=== PATIENT | female | born 1935 | race Caucasian/White ===

== ENCOUNTER 2025-07-01 09:54 | Inpatient (IN) | payer MEDICARE, OTHER ==
[~2025-07-01] VITALS: Ht 154.9 cm; Wt 60.3 kg
[2025-07-01] VITALS (10 sets, daily range): BP systolic 90–115; BP diastolic 47–65; TEMP 98–98.3; O2SAT 94–98
[2025-07-01] MEDS ORDERED: IPRATROPIUM BROMIDE 0.5 MG/2.5 ML NEBU ONE ×2 (10:25→12:02)
[2025-07-01] MEDS ORDERED: ALBUTEROL SULFATE 2.5 MG/3 ML NEBU ONE ×2 (10:25→12:02)
[2025-07-01] MEDS ORDERED: BP med PO (10:35)
[2025-07-01 10:36] LABS: PLATELET COUNT (AUTO) 129 K/uL (179-408); RED BLOOD CELL COUNT(AUTO) 4.13 MIL/uL (3.63-4.92); RED CELL DISTRIBUTION WIDTH 14.7 % (12.3-17.7); WHITE BLOOD COUNT (AUTO) 9.1 K/uL (3.8-11.8)
[2025-07-01] MEDS: ALBUTEROL SULFATE 2.5 MG/3 ML NEBU NEB ONE (10:37)
[2025-07-01] MEDS: IPRATROPIUM BROMIDE 0.5 MG/2.5 ML NEBU NEB ONE (10:37)
[2025-07-01 10:55] LABS: ASPARTATE AMINOTRANSFERASE 25 U/L (15-37); CREATININE 1.0 mg/dL (0.6-1.3); SODIUM SERUM 131 mmol/L (136-145); TOTAL PROTEIN, SERUM 7.4 g/dL (6.4-8.2); UREA NITROGEN, BLOOD 19 mg/dL (7-18)
[2025-07-01] MEDS ORDERED: LIDOCAINE VISCUS 2% 15 ML UDC ONE (11:11)
[2025-07-01] MEDS ORDERED: ACETAMINOPHEN 325 MG TABLET ONE (11:11)
[2025-07-01] MEDS: LIDOCAINE VISCUS 2% 15 ML UDC MM ONE (11:16)
[2025-07-01] MEDS: IV NS 1000 ML 1,000 ML IV ONE (11:16)
[2025-07-01] MEDS: ACETAMINOPHEN 325 MG TABLET PO ONE (11:16)
[2025-07-01] MEDS: ENOXAPARIN SODIUM 40 MG/0.4 ML DISP.SYRIN SQ SCH (11:30)
[2025-07-01] MEDS ORDERED: MAGNESIUM HYDROXIDE 30 ML LIQUID UDC PO PRN (11:30)
[2025-07-01] MEDS ORDERED: ONDANSETRON 4 MG/2 ML VIAL IV PRN (11:30)
[2025-07-01] MEDS ORDERED: CEFTRIAXONE /D5W 50ML IVPB **ER PYXIS IV ONE (11:30)
[2025-07-01] MEDS ORDERED: MEMA5TAB16 PO (12:46)
[2025-07-01] MEDS ORDERED: TRAZ-182 PO (12:46)
[2025-07-01] MEDS ORDERED: LINA145C PO (12:46)
[2025-07-01] MEDS ORDERED: LOSA25TA27 PO (12:46)
[2025-07-01] MEDS: ALBUTEROL SULFATE 2.5 MG/3 ML NEBU NEB SCH (14:25)
[2025-07-01] MEDS: IPRATROPIUM BROMIDE 0.5 MG/2.5 ML NEBU NEB SCH (14:25)
[2025-07-01] MEDS: IV NS 1000 ML 1,000 ML IV PRN (15:41)
[2025-07-01] MEDS ORDERED: GUAIFENESIN/DEXTROMETHORPHAN 5 ML UDC PO PRN (16:30)
[2025-07-01] MEDS ORDERED: ACETAMINOPHEN/CODEINE 300-30 MG TABLET PO PRN (16:30)
[2025-07-01] MEDS: GUAIFENESIN LA 600 MG TABLET.SA PO SCH (20:35)
[2025-07-01] MEDS: TRAZODONE 50 MG TABLET PO PRN (23:30)
[2025-07-02] VITALS (14 sets, daily range): BP systolic 96–114; BP diastolic 51–65; TEMP 97.8–98.2; O2SAT 92–99
[2025-07-02] MEDS: GUAIFENESIN/CODEINE 5 ML LIQUID UDC PO PRN (02:44)
[2025-07-02] MEDS: PANTOPRAZOLE SODIUM 40 MG TABLET.DR PO SCH (06:33)
[2025-07-02 06:42] LABS: PLATELET COUNT (AUTO) 94 K/uL (179-408); RED BLOOD CELL COUNT(AUTO) 3.64 MIL/uL (3.63-4.92); RED CELL DISTRIBUTION WIDTH 15.2 % (12.3-17.7); WHITE BLOOD COUNT (AUTO) 5.7 K/uL (3.8-11.8)
[2025-07-02 06:46] LABS: CREATININE 0.9 mg/dL (0.6-1.3); SODIUM SERUM 133 mmol/L (136-145); UREA NITROGEN, BLOOD 18 mg/dL (7-18)
[2025-07-02 07:58] LABS: ABG BASE EXCESS -1.1 mmol/L (-2.0-3.0); ABG HCO3 21.0 mmol/L (21.0-28.0); ABG PCO2 26.8 mmHg (32.0-45.0); ABG PH 7.512 (7.350-7.450); ABG PO2 44.1 mmHg (83.0-108.0); ABG TOTAL HEMOGLOBIN 10.4 G/dL (12.0-16.0); AaDO2 85.5 mmHg; FIO2 21.0 %
[2025-07-02] MEDS ORDERED: Linaclotide (Linzess) 145 MCG) PO SCH (09:00)
[2025-07-02] MEDS: MEMANTINE HCL 5 MG TABLET PO SCH (10:04)
[2025-07-02] MEDS: ACETAMINOPHEN 325 MG TABLET PO PRN (10:06)
[2025-07-02] MEDS: LOSARTAN POTASSIUM 25 MG TABLET PO SCH (10:07)
[2025-07-02 10:12] LABS: LYMPHOCYTES % (MANUAL) 14 % (20-40); MONOCYTES % (MANUAL) 7 % (2-10); NEUTROPHILS % (MANUAL) 79 % (42-75)
[2025-07-02 10:13] LABS: PLATELET ESTIMATE MARKED DECREASED
[2025-07-02] MEDS: LORAZEPAM 0.5 MG TABLET PO PRN (14:52)
[2025-07-02] MEDS: NEUTRA PHOS PACKET PO ONE (16:38)
[2025-07-02] MEDS ORDERED: TRAZODONE 50 MG TABLET PO SCH (21:00)
[2025-07-02] MEDS: TRAZODONE 100 MG TABLET PO SCH (21:46)
[2025-07-03] VITALS (15 sets, daily range): BP systolic 98–130; BP diastolic 45–65; TEMP 97.6–97.8; O2SAT 90–98
[2025-07-03 06:29] LABS: PLATELET COUNT (AUTO) 102 K/uL (179-408); RED BLOOD CELL COUNT(AUTO) 3.58 MIL/uL (3.63-4.92); RED CELL DISTRIBUTION WIDTH 15.2 % (12.3-17.7); WHITE BLOOD COUNT (AUTO) 5.2 K/uL (3.8-11.8)
[2025-07-03 06:47] LABS: CREATININE 0.7 mg/dL (0.6-1.3); SODIUM SERUM 135 mmol/L (136-145); UREA NITROGEN, BLOOD 16 mg/dL (7-18)
[2025-07-03] MEDS ORDERED: IPRATROPIUM BROMIDE 0.5 MG/2.5 ML NEBU NEB PRN (09:15)
[2025-07-03] MEDS ORDERED: ALBUTEROL SULFATE 2.5 MG/3 ML NEBU NEB PRN (09:15)
[2025-07-03] MEDS: NEUTRA PHOS PACKET PO ONE (11:08)
[2025-07-03] MEDS: AZITHROMYCIN IV 500 MG in IV DEXTROSE 5% 250 ML IV SCH (19:33)
[2025-07-03] MEDS: ENOXAPARIN SODIUM 40 MG/0.4 ML DISP.SYRIN SQ SCH (21:09)
[2025-07-04] VITALS (14 sets, daily range): BP systolic 102–132; BP diastolic 59–70; TEMP 97.3–97.7; O2SAT 90–97
[2025-07-04 06:43] LABS: PLATELET COUNT (AUTO) 131 K/uL (179-408); RED BLOOD CELL COUNT(AUTO) 3.35 MIL/uL (3.63-4.92); RED CELL DISTRIBUTION WIDTH 15.1 % (12.3-17.7); WHITE BLOOD COUNT (AUTO) 5.0 K/uL (3.8-11.8)
[2025-07-04 07:12] LABS: CREATININE 0.8 mg/dL (0.6-1.3); SODIUM SERUM 140 mmol/L (136-145); UREA NITROGEN, BLOOD 17 mg/dL (7-18)
[2025-07-04] MEDS: NEUTRA PHOS PACKET PO ONE (11:58)
[2025-07-05] VITALS (7 sets, daily range): BP systolic 122–137; BP diastolic 63–71; TEMP 97.3–98.2; O2SAT 61–97
[2025-07-05 06:49] LABS: PLATELET COUNT (AUTO) 158 K/uL (179-408); RED BLOOD CELL COUNT(AUTO) 3.52 MIL/uL (3.63-4.92); RED CELL DISTRIBUTION WIDTH 15.2 % (12.3-17.7); WHITE BLOOD COUNT (AUTO) 5.5 K/uL (3.8-11.8)
[2025-07-05 06:50] LABS: CREATININE 0.9 mg/dL (0.6-1.3); SODIUM SERUM 141 mmol/L (136-145); UREA NITROGEN, BLOOD 19 mg/dL (7-18)
[2025-07-05] MEDS: BENZOCAINE/MENTH/CETYLPYRD LOZENGE MM PRN (09:28)
[2025-07-05] MEDS: AZITHROMYCIN 250 MG TABLET PO ONE (18:44)
[2025-07-05] MEDS: NEUTRA PHOS PACKET PO ONE (18:44)
[2025-07-05] MEDS: BISACODYL 5 MG TABLET.DR PO PRN (22:08)
[2025-07-06 00:15] VITALS: O2SAT 95
[2025-07-06 00:20] VITALS: O2SAT 94
[2025-07-06 05:08] VITALS: BP 116/56; TEMP 97.6; O2SAT 93
[2025-07-06 06:46] LABS: PLATELET COUNT (AUTO) 192 K/uL (179-408); RED BLOOD CELL COUNT(AUTO) 3.49 MIL/uL (3.63-4.92); RED CELL DISTRIBUTION WIDTH 15.2 % (12.3-17.7); WHITE BLOOD COUNT (AUTO) 6.3 K/uL (3.8-11.8)
[2025-07-06 07:05] LABS: CREATININE 0.9 mg/dL (0.6-1.3); SODIUM SERUM 138 mmol/L (136-145); UREA NITROGEN, BLOOD 24 mg/dL (7-18)
[2025-07-06 08:55] VITALS: BP 120/64
[2025-07-06 09:37] LABS: BAND % (MANUAL) 1 % (0-10); LYMPHOCYTES % (MANUAL) 14 % (20-40); METAMYELOCYTES % 1 % (0-1); MONOCYTES % (MANUAL) 12 % (2-10); MYELOCYTES % 4 % (0-0); NEUTROPHILS % (MANUAL) 68 % (42-75); PLATELET ESTIMATE ADEQUATE
[2025-07-06] MEDS ORDERED: PRED20TA PO ×2 (10:00)
[2025-07-06] MEDS ORDERED: AZIT500T PO (10:00)
[2025-07-06] MEDS ORDERED: LORA-259 PO (10:00)
[2025-07-06] MEDS ORDERED: CEFD300C3 PO (10:00)
[2025-07-06] MEDS ORDERED: ALBU18HF2 INH (10:00)
[2025-07-06 10:22] VITALS: TEMP 97.3
[2025-07-06 10:23] VITALS: O2SAT 95
== END 2025-07-06 11:20 | disposition home health service (06) | DRG 177 ==
LOC: ER 09:54 → TELE3 13:09 → MEDSURG3 13:51
PROVIDERS: ADMIT Nurse Practitioner Family; ATTEND Nurse Practitioner Family
DX: J15.69 Pneumonia due to other Gram-negative bacteria (principal); J96.01 Acute respiratory failure with hypoxia; D69.6 Thrombocytopenia, unspecified; E87.1 Hypo-osmolality and hyponatremia; I10 Essential (primary) hypertension; Z79.899 Other long term (current) drug therapy; J20.9 Acute bronchitis, unspecified; M81.0 Age-related osteoporosis without current pathological fracture; K59.00 Constipation, unspecified; M15.9 Polyosteoarthritis, unspecified; R79.89 Other specified abnormal findings of blood chemistry; R73.9 Hyperglycemia, unspecified; J30.1 Allergic rhinitis due to pollen; F41.9 Anxiety disorder, unspecified
CPT/HCPCS: 36415; 36600; 70030-TC; 71045; 71250; 82785; 82803; 83735; 84100; 85025; 87040; 93005; 93307; 94640; 94664; 94760; A4606; A4663; G0378; J0456; J0696; J1650; J2919; J3590; J7040; J7050; Q0144